=== PATIENT | male | born 1950 | race Caucasian/White ===

== ENCOUNTER → 2017-09-15 | Outpatient (CLI) | payer OTHER, MEDICARE ==
[~2017-09-15] VITALS: Ht 182.9 cm; Wt 81.6 kg
[~2017-09-15] MED LIST: AMITRIPTYLINE H10 M3 PO; ATORVASTATIN CA40 MG PO; FLOMAX0.4 MG PO; METAMUCIL POWD174 GM PO; OMEPRAZOLE40 MG PO; PRINIVIL20 MG PO; PROBIOTIC1 EAC1 PO; XANAX 0.5 MG0.5 MG PO
--- NOTE | ~2017-09-15 | HPC ---
[facility] [address] [place] [address] PAIN MANAGEMENT CONSULTATION Name: Tung GO Room #: REG [facility].#: [id number] Admission: 09/15/17 Attend Phys: Wesly Horowitz DO Discharge: Date of : 54 Report #: [id number] THIS REPORT FOR: //name// CC: ANA Horowitz DATE OF SERVICE: 09/15/2017 HISTORY OF PRESENT ILLNESS: The patient is a very pleasant 67-year-old gentleman seen in consultation at the request of Dr. Taz Polo and Darinel Miller, physical therapist, for evaluation of pain, neck, left shoulder, arm with paresthesia into the fourth and fifth finger. The patient has had chronic neck pain for 7-8 years, typically treated with physical therapy, manipulation. Unable to take nonsteroidal anti-inflammatory medications due to gastroesophageal reflux. He notes he has had acute exacerbation of the more radicular component of pain with paresthesia going into the left fourth and fifth finger. Some triceps weakness. Notes symptoms are exacerbated with coughing, sneezing or lifting. Some relief with rest. He describes periodic pain with restricted active movement, burning, shooting, sharp, stabbing, tender pain, rates anywhere from 2-10 on a VAS. Denies any myelopathic symptoms affecting the lower extremity. REVIEW OF SYSTEMS: Complete review of systems is attached to chart and has gone over with the patient. He is , does not smoke, drink alcohol to excess. History of IBS, hypertension. 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 MEDICATIONS: List was reconciled includes lisinopril, atorvastatin, amitriptyline, omeprazole and tamsulosin for BPH. PHYSICAL EXAMINATION: GENERAL: Reveals a 6 feet tall, 180-pound gentleman in moderate distress at present. VITAL SIGNS: Stable as noted in the EMR. NECK: Cervical range of motion is limited. Positive Lhermitte's. Thyroid is unremarkable. NEUROLOGIC: Extraocular muscles are intact. He is alert and oriented to person, place and time, judged to be a reasonable historian. Has objective decreased strength, left triceps. Hand grasp is modestly diminished with opposition of the thumb versus ring and fifth finger. Triceps reflexes diminished on the left. Biceps, brachioradialis reflexes are symmetric. All other muscle groups are symmetric. HEART: Regular rhythmical without murmur. LUNGS: Clear to auscultation. MUSCULOSKELETAL: Gait is tandem. Lower extremity strength is preserved. [facility] [address] [place] [address] PAIN MANAGEMENT CONSULTATION Name: Tung GO MYLES Room #: REG LATESHA SalasEduardoBillieEduardo#: [id number] Admission: 09/15/17 Attend Phys: Wesly Horowitz DO Discharge: Date of : 54 Report #: [id number] History of some axial back pain, though relatively quiescent at present. DIAGNOSTIC STUDIES: There are no recent diagnostic studies available for evaluation at this time. ASSESSMENT: Symptomatic cervical radiculopathy by clinical exam and history, correlating with left C8 radicular distribution. RECOMMENDATIONS: 1. Cervical epidural injection under fluoroscopy today at C7-T1. 2. Physical therapy to continue range of motion, stretching modalities as indicated. Follow up in 3 weeks to reevaluate. Thank you for allowing me to participate in the patient's care. ASSESSMENT: Symptomatic cervical radiculopathy. PROCEDURE: Cervical epidural injection under fluoroscopy. PROCEDURE NOTE: After written and informed consent was obtained including risk of dural puncture, spinal cord trauma, paralysis and increased pain, the patient was taken to the fluoroscopy suite and placed in the prone position, with appropriate abdominal bolstering, neck was flexed, palms under the thighs. Skin was prepped with ChloraPrep. Sterile draping was applied. Skin wheal with 1% Xylocaine was raised. A 22-gauge 3-1/2 inch epidural Tuohy needle was placed via a midline approach at the C7-T1 interspace, advanced under biplanar fluoroscopy using continuous loss of resistance. With appropriate loss of resistance at the expected depth on lateral view, the glass loss of resistance syringe was disconnected. A low volume extension tubing was connected to the needle and a 5 mL syringe. Negative aspiration for cerebrospinal fluid or blood was noted. A 1 mL of Omnipaque was injected which showed spread within the epidural space on biplanar fluoroscopy. This was followed with 80 mg of triamcinolone plus 1 mL of 1.5% preservative Xylocaine. Needle was withdrawn to the interspinous ligament, 0.5 mL of Xylocaine was used to flush the needle. The needle was then completely withdrawn. The area was cleansed. Band-Aid was applied. The patient was allowed to move off the procedure table and ambulated to the recovery room, monitored for an appropriate period of time, discharged in good and stable condition. <ELECTRONICALLY SIGNED> By: Wesly Horowitz DO 09/17/17 0721 [id number] Wesly Horowitz DO /nt
[2017-09-15 10:30] VITALS: BP 124/82
== END | disposition home or self-care (01) ==
LOC: PAIN 06:52
DX: M54.12 Radiculopathy, cervical region (principal); N40.0 Benign prostatic hyperplasia without lower urinary tract symptoms; I10 Essential (primary) hypertension; K21.9 Gastro-esophageal reflux disease without esophagitis; Z85.828 Personal history of other malignant neoplasm of skin; Z79.899 Other long term (current) drug therapy; Z90.49 Acquired absence of other specified parts of digestive tract; Z98.890 Other specified postprocedural states; Z87.19 Personal history of other diseases of the digestive system; Z88.1 Allergy status to other antibiotic agents